=== PATIENT | male | born 2000 | race Caucasian/White ===

== ENCOUNTER 2024-12-04 23:07 | Emergency (ER) | payer BC, SELFPAY ==
[2024-12-04 23:26] VITALS: BP 124/66
[2024-12-05 01:26] VITALS: BP 168/127
[2024-12-05 01:34] VITALS: BP 137/68
[2024-12-05 01:44] VITALS: BMI 25.3
[2024-12-05 02:01] LABS: % Basophils 0.2 % (0-2); % Immature Granulocytes 0.2 % (0-0.5); % Lymphocytes 25.6 % (20.5-51.1); % Monocytes 8.8 % (1.7-9.3); % Neutrophils 64.2 % (42.2-75.2); Absolute Eosinophils 0.1 10^3/uL (0-0.7); Absolute Lymphocytes 1.3 10^3/uL (1.2-3.4); Absolute Monocytes 0.5 10^3/uL (0.1-0.6); Absolute Neutrophils 3.3 10^3/uL (1.4-6.5); Hematocrit 45.8 % (39.0-52.0); Hemoglobin 15.8 g/dL (13.0-18.0); Mean Corp Hgb Conc. 34.5 g/dL (33.0-37.0); Mean Corpuscular Hgb 30.3 pg (27.0-31.0); Mean Corpuscular Volume 87.7 fL (80.0-94.0); Mean Platelet Volume 9.2 fL (7.4-10.4); Nucleated Red Blood Cells % 0 % (-); Platelet Count 147 10^3/uL (130-400); Red Blood Cell Count 5.22 10^6/uL (4.70-6.10); Red Cell Dist. Width 12.2 % (11.5-14.5); White Blood Cell Count 5.1 10^3/uL (4.8-10.8)
[2024-12-05 02:20] LABS: ALT (SGPT) 35 U/L (0-50); AST (SGOT) 33 U/L (17-59); Albumin 4.4 g/dl (3.5-5.0); Alkaline Phosphatase 46 U/L (38-126); Blood Urea Nitrogen 17 mg/dl (9-20); Carbon Dioxide 27 mmol/L (22-30); Chloride 102 mmol/L (98-107); Estimated Creatinine Clearance 92 ml/min; Glucose 87 mg/dl (70-99); Potassium 3.7 mmol/L (3.5-5.1); Sodium 140 mmol/L (135-145); Total Bilirubin 0.4 mg/dl (0.2-1.3); Total Protein 7.5 g/dl (6.3-8.2); eGFR > 60.00
--- NOTE | 2024-12-05 02:34 | ED.GENMED ---
History of Present Illness
General
Chief Complaint: Fever
Source: patient and family
Exam Limitations: none
Time Seen by Provider: 12/05/24 01:24
Nursing documentation reviewed up to this point in time: agreed with
History of Present Illness
History of Present Illness:
Patient is a 24-year-old male who presents to the ER with family. Patient started with flulike symptoms, cough body aches fever chills since Sunday. Still today 4 days later he had a temperature of 103.9. They went to urgent care and had testing
done for COVID and flu both of which were negative and was told he had a pneumonia. He was given 1 dose of Doxy but with persistent fever he presented to the ER.
He denies any shortness of breath.
He did take ibuprofen prior to arrival
He does not smoke
Past History
Past History
ED Past Medical History: None
ED Past Surgical History: None
Social History
Tobacco: Non-smoker
Review of Systems
Review of Systems
Allergies reviewed?: Yes
All Other Systems: ROS reviewed and negative except as documented in HPI and ROS
Constitutional: Reports fever, fatigue and chills
Respiratory: Reports cough; Denies trouble breathing
Cardiac: Reports no symptoms
ABD/GI: Reports no symptoms
: Reports no symptoms
Musculoskeletal: Reports no symptoms
Skin: Reports no symptoms
Neurological: Reports no symptoms
Psychiatric: Reports no symptoms
Phy Exam
General Physical Exam
General Presentation: no apparent distress
General age: appears stated age
General Skin: warm and dry
General Habitus: normal
General Mental: alert
General Hydration: appears well hydrated
ENT Exam
ENT Exam: EOMI and neck supple
Cardiovascular Exam
Cardiovascular Exam: regular rate/rhythm, no murmur and normal peripheral pulses
Pulmonary Exam
Pulmonary Exam: lungs clear and no respiratory distress
Neurological Exam
Neurological Exam: alert and oriented x3
Musculoskeletal Exam
Musculoskeletal Exam: full ROM
Skin Exam
Skin Exam: normal color and warm/dry
Psychiatric Exam
Psychiatric Exam: normal mood/affect
Course
Orders/Labs/Results
Orders:
Orders
12/05/24 01:44
Complete Blood Count/With Diff Urgent
Comprehensive Metabolic Panel Urgent
12/05/24 01:46
CR Chest - 2 Views Urgent
Comment:
Reason For Exam: cough, fever
12/05/24 02:47
COVID-19 Antigen Urgent
Source: Nasal Swab
Influenza A+B Rapid Molecular Urgent
KASSIDY Source: Nasal Swab
Specimen Description:
12/05/24 01:44
12/05/24 01:44
Vital Signs
Initial and Last Documented VS:
Initial Vital Signs
Temp Pulse Resp BP Pulse Ox
100.3 F 86 16 124/66 97
12/04/24 23:26 12/04/24 23:26 12/04/24 23:26 12/04/24 23:26 12/04/24 23:26
Last Documented Vital Signs
Temp Pulse Resp BP Pulse Ox
98.4 F 86 16 137/68 98
12/05/24 03:41 12/04/24 23:26 12/04/24 23:26 12/05/24 01:34 12/05/24 01:45
Chair Lift Operator consulted with Physician
Chair Lift Operator consulted with physician?: Yes
Name of Physician Consulted: DR Johnson
MDM/Problems Addressed
Differential Diagnosis Includes:
Not limited to viral syndrome COVID flu influenza bronchitis, pneumonia
MDM/Problems Addressed:
As documented patient is a 24-year-old male who presents to the ER complaining of fever chills body aches for the past several days. Patient does report temps as high as 103.9. He went to urgent care was tested negative for COVID flu diagnosed
with questionable pneumonia and given doxycycline took 1 dose however with persistent temperature came to the ER. He presents awake alert no acute distress is nontoxic lungs are clear not hypoxic low-grade temperature here in the ER. Repeat COVID
flu are negative. X-ray reviewed ED physician questionable right-sided pneumonia versus viral. Will have patient continue doxycycline until formal reading. I did review with patient and family they may call tomorrow to get the formal x-ray
results however at this time we will have patient continue doxycycline for possible pneumonia with persistent fever and cough of the past several days. He however is nontoxic nonhypoxic and stable for discharge home.
*Radiology
Radiology exam reviewed: preliminary read by ED provider (questionable right sided pneumonia )
*Pulse Oximetry
Patient hypoxic: no
*Critical Care Note
Total Time (30-74mins, 75-104mins- exclusive of procedures): Not Applicable
ED Attending Note
-
Portions of this chart may have been created with voice recognition software.� Occasional wrong word or��sound alike� substitutions may have occurred due to the inherent limitations of voice recognition software.
Discharge Plan
Departure
Patient Disposition: Home (Routine Discharge)
Date of Disposition: 12/05/24
Time of Disposition: 03:30
Patient with high blood pressure during this ER visit?: Yes
Condition: Fair
Covid-19: Not Applicable
Discharge Problem:
Pneumonia
Instructions: Fever, Adult (DC), Pneumonia in adults - Discharge instructions, BLOOD PRESSURE
Prescriptions:
No Action
oseltamivir 75 MG capsule
75 mg PO BID Qty: 9 0RF
Referrals:
Juan Carlos Monson DO [Family Provider] -
Activity Restrictions/Additional Instructions:
As discussed it is possible that you have a small right sided pneumonia. Formal radiology report will be available tomorrow. Please continue doxycycline. Be sure to get plenty rest stay well-hydrated. Continue to treat fevers alternating with
Tylenol and ibuprofen. Follow-up with a family doctor in the next several days. return if any worsening of symptoms
Interventions
Interventions:
*Risk Screen - Suicide Last Done: 12/04/24 23:26
*General Assessment Last Done: 12/05/24 01:57
*Neglect/Abuse Screening Last Done: 12/05/24 01:57
ED- Fall Risk Assessment Last Done: 12/05/24 01:57
*ED COVID-19 Vaccine History Last Done: 12/05/24 01:57
*Nursing Disposition Last Done: 12/05/24 03:42
ED- Neurological Assessment Last Done: 12/05/24 01:57
ED-Skin Assessment Last Done: 12/05/24 01:57
Discharge Date and Time
Discharge Date/Time: 12/05/24 03:43
Print Language: IVORIAN
[2024-12-05 03:18] LABS: COVID-19 Antigen Negative (Negative)
== END 2024-12-05 03:43 | disposition home or self-care (01) ==
LOC: EMR 23:07
PROVIDERS: Nurse Practitioner; EMERGENCY PHYSICIAN Student in an Organized Health Care Education/Training Program; FAMILY PHYSICIAN Internal Medicine
DX: J18.9 Pneumonia, unspecified organism (principal)
CPT/HCPCS: 99283; 71046; 80053; 85025; 87502; 87811